=== PATIENT | female | born 1985 | race Caucasian/White ===

== ENCOUNTER 2023-11-06 17:16 | Emergency (ER) | payer MEDICAID, SELFPAY ==
--- NOTE | ~2023-11-06 | XR_ITS ---
Examination: X-ray sacrum and coccyx and lumbar spine INDICATION: Back pain COMPARISON: None TECHNIQUE: 3 views of the sacrum and coccyx. 2 views of the lumbar spine FINDINGS: Vertebral body heights and intervertebral disc spaces are fairly well preserved in the lumbar spine. Posterior elements appear intact. There is normal alignment in the lumbar spine. The sacrum and coccyx appear intact without displaced fracture. Sacroiliac joints and pubic symphysis are intact XR/XR lumbar spine 2-3V IMPRESSION: No acute process in the lumbar spine, sacrum and coccyx.
--- NOTE | ~2023-11-06 | XR_ITS ---
Examination: X-ray sacrum and coccyx and lumbar spine INDICATION: Back pain COMPARISON: None TECHNIQUE: 3 views of the sacrum and coccyx. 2 views of the lumbar spine FINDINGS: Vertebral body heights and intervertebral disc spaces are fairly well preserved in the lumbar spine. Posterior elements appear intact. There is normal alignment in the lumbar spine. The sacrum and coccyx appear intact without displaced fracture. Sacroiliac joints and pubic symphysis are intact XR/XR sacrum coccyx min 2V IMPRESSION: No acute process in the lumbar spine, sacrum and coccyx.
[2023-11-06 17:30] VITALS: BP 140/90; PULSE 89; RESP 20; TEMP 36.9; O2SAT 100
[2023-11-06 17:50] VITALS: BP 140/90; PULSE 89; RESP 20; TEMP 36.9; O2SAT 100; BMI 29.4
[2023-11-06 17:55] VITALS: BP 100/76; PULSE 104; O2SAT 99
--- NOTE | 2023-11-06 18:12 | ED_ITS ---
HPI - Back Pain/Injury General Chief Complaint: Back Pain/Injury Stated Complaint: Back pain Time Seen by Provider: 11/06/23 17:21 Source: patient, family and EMS Mode of arrival: EMS Limitations: no limitations History of Present Illness HPI Narrative: 38yo female with history of chronic back pain after an injury years ago, anxiety presents to the ER with lower back pain after pushing a heavy grocery cart this afternoon. Called EMS from home. Given 75mcg of fentanyl [employer]. Patient reports pain radiates to both lower legs with numbness/tingling. No numbness in the groin. No bowel or bladder incontinence. No fevers, chills. Related Data Previous Rx's Medication Instructions Recorded cyclobenzaprine 10 mg tablet 10 mg PO TID PRN muscle spasm #14 11/06/23 tabs ibuprofen 600 mg tablet 600 mg PO Q6H PRN pain #30 tabs 11/06/23 lidocaine 5 % topical patch 1 patch topical DAILY #30 ea 11/06/23 (Lidoderm) Allergies Allergy/AdvReac Type Severity Reaction Status Date / Time acetaminophen [From Tylenol] Allergy Muscle Verified 11/06/23 17:45 cramps diclofenac Allergy Hives Verified 11/06/23 17:45 ketorolac Allergy Hives Verified 11/06/23 17:45 Review of Systems Review of Systems: Yes all other systems are reviewed and are negative Constitutional: Constitutional: Reports no additional constitutional complaints, Denies body ache(s), Denies chills, Denies fever(s), Denies headache(s) and Denies weakness Eyes: Eyes: Reports no additional eye complaints and Denies change in vision ENT: Reports system reviewed and no additional complaints, except as documented, Denies dizziness, Denies headache(s), Denies nasal congestion, Denies nasal discharge and Denies neck pain Cardiovascular: Cardiovascular: Reports no additional cardiovascular complaints, Denies chest pain, Denies leg edema and Denies dyspnea Respiratory: Respiratory: Reports no additional respiratory complaints, Denies cough and Denies dyspnea Gastrointestinal: Gastrointestinal: Reports no additional gastrointestinal complaints, Denies abdominal pain, Denies diarrhea, Denies nausea and Denies vomiting Genitourinary: Genitourinary: Reports no additional female genitourinary complaints and Denies urinary incontinence Musculoskeletal: Musculoskeletal: Reports no additional musculoskeletal complaints, Reports back pain, Denies arthralgias, Denies joint swelling, Denies neck pain, Reports numbness, Reports radiating pain into limb and Reports tingling Integumentary/Breasts: Skin/Breast: Reports system reviewed and no additional complaints, except as docu and Denies rash Neurologic: Reports system reviewed and no additional complaints, except as documented, Denies Abnormal speech present, Denies dizziness, Denies headache(s), Reports numbness, Reports tingling and Denies weakness PMFSH Past Medical History Attestation statement: The following information was validated with the patient. Source: old records reviewed and nursing notes reviewed Onset Date is defined in the Problem List Problems that require an onset date and time if occurred within 24 hrs of arrival to the ED Aortic Dissection and Rupture; Neurologic impairment; Cardiopulmonary Arrest; Endotracheal Intubation; Insertion or Replacement of Mechanical Circulatory Assist Device Social History Social History Advance Directives: No Advance Directives Information Provided: No Physical Exam Vital Signs: Vital Signs: Last Vital Signs Temp 98.4 F 11/06/23 17:50 Pulse 89 11/06/23 17:50 Resp 20 11/06/23 17:50 BP 140/90 H 11/06/23 17:50 Pulse Ox 100 11/06/23 17:50 O2 Del Method Room Air 11/06/23 17:50 BMI result Body Mass Index 29.4 Const: Other: Crying in pain General: alert Orientation/consciousness: patient oriented x3 Limitations: no limitations HEENT: Head: Yes normal to inspection Ears: hearing grossly normal bilaterally General nose exam: Normal external nose present Face and sinus: Yes normal facial exam Mouth: Normal oral and palatal mucosa present Throat: Yes posterior oropharynx normal Eyes: General: appearance normal, both eyes and all related structures Pupils: Equal, round and reactive pupils present Neck: Neck: Yes normal visual inspection, Yes full ROM and Yes no lymphadenopathy Chest: Chest palpation & inspection: normal inspection of the chest Resp: Effort & Inspection: normal respiratory effort Auscultation: clear to auscultation bilaterally Cardio: Rate: regular rate Rhythm: regular rhythm Peripheral pulses: Peripheral pulses 2+ throughout GI: Inspection: Yes normal to inspection Palpation (GI): Soft to palpation and nontender Auscultation: normal bowel sounds : General: Yes no CVA tenderness Back/Spine/Pelvis: Other: TTP to midline lumbar spine with no step offs or deformities Worsened with bilateral straight leg raise Back: no CVA tenderness Thoracic/Lumbar Spine: thoracic and lumbar spine normal to inspection Skin: General skin exam: no rashes or lesions noted Neuro: General: patient oriented x3, moves all extremities, no focal motor deficits and normal sensation to monofilament Cranial nerves: Yes Equal, round and reactive pupils present Cognition (Neuro): normal cognition Speech: No Abnormal speech present Sensory Exam: Normal double simultaneous stimulation for sensation Deep tendon reflexes (DTR's): Right patellar reflex intensity grade: 2+ and Left patellar reflex intensity grade: 2+ Extrem: General: Yes normal to inspection Course Course Course Narrative: 1899-Sign out to Purvi QUINONES pending re-eval and dispo Reevaluation(s) Reevaluation #1: Pt re-evaluated, having some relief of pain, mild TTP to midline lumbar spine, will obtain xrays for further evaluation. Pt remains comfortable, eating in stretcher. Time: 19:15 Reevaluation #2: Patient ambulating in department, feeling much better, discharged on muscle relaxants, Lidoderm, and ibuprofen, also given Neuro Spine referral for further workup and evaluation given chronic back pain. Given return precautions. Patient stable for discharge. Time: 21:47 Medications Administered Discontinued Medications Generic Name Dose Route Start Last Admin Trade Name Osmin PRN Reason Stop Dose Admin Dexamethasone Sodium Phosphate 10 mg 11/06/23 18:07 11/06/23 18:30 Dexamethasone Sod Phosphate 10 Mg/Ml Vial IVPUSH 11/06/23 18:08 10 mg ONCE ONE Administration Diazepam 2.5 mg 11/06/23 18:05 11/06/23 18:29 Diazepam 10 Mg/2 Ml Cartridge IVPUSH 11/06/23 18:06 2.5 mg STAT STA Administration Lidocaine 1 patch 11/06/23 18:06 11/06/23 18:21 Lidocaine 4 % Patch Adh..Patch TRANSDERMA 11/06/23 18:07 1 patch ONCE ONE Administration Protocol Ondansetron HCl 4 mg 11/06/23 18:49 11/06/23 18:57 Ondansetron Hcl 4 Mg/2 Ml Vial IVPUSH 11/06/23 18:50 4 mg ONCE ONE Administration Oxycodone HCl 10 mg 11/06/23 18:05 11/06/23 18:19 Oxycodone Hcl Immed Release 5 Mg Tablet PO 11/06/23 18:06 10 mg ONCE ONE Administration Medical Decision Making Medical Decision Making MDM Narrative: 38yo female with history of chronic back pain after an injury years ago, anxiety presents to the ER with lower back pain after pushing a heavy grocery cart this afternoon. Called EMS from home. Given 75mcg of fentanyl [employer]. Patient reports pain radiates to both lower legs with numbness/tingling. No numbness in the groin. No bowel or bladder incontinence. No fevers, chills. quite uncomfortable, crying in pain. TTP to lumbar mid spine with no step offs or deformities No focal neuro deficits or red flag symptoms seems more muscular Multiple analgesia allergies Will give oxycodone, valium, lidoderm, decadron and re-assess Differential Diagnosis Differential Diagnoses: The differential diagnosis associated with the presentation includes no neurological deficits red flag symptoms suggest cord compression,, cauda equina, epidural abscess, malignancy no urinary symptoms suggest renal colic or pyelonephritis Gradual onset so low concern for AA No reports of fall or injury to suggest fracture Admission/Observation Consideration of admission/observation: Escalation of care including admission/observation considered no neuro deficits or red flag symptoms to suggest need for emergent MRI, urgent NSY consultation and or transfer to tertiary care center Radiology Impression Discussion of test interpretation with radiology: I have reviewed the radiologist's reading. Radiologist Impression: Examination: X-ray sacrum and coccyx and lumbar spine INDICATION: Back pain COMPARISON: None TECHNIQUE: 3 views of the sacrum and coccyx. 2 views of the lumbar spine FINDINGS: Vertebral body heights and intervertebral disc spaces are fairly well preserved in the lumbar spine. Posterior elements appear intact. There is normal alignment in the lumbar spine. The sacrum and coccyx appear intact without displaced fracture. Sacroiliac joints and pubic symphysis are intact XR/XR sacrum coccyx min 2V IMPRESSION: No acute process in the lumbar spine, sacrum and coccyx. Dictated By: Andi Nelson MD xamination: X-ray sacrum and coccyx and lumbar spine INDICATION: Back pain COMPARISON: None TECHNIQUE: 3 views of the sacrum and coccyx. 2 views of the lumbar spine FINDINGS: Vertebral body heights and intervertebral disc spaces are fairly well preserved in the lumbar spine. Posterior elements appear intact. There is normal alignment in the lumbar spine. The sacrum and coccyx appear intact without displaced fracture. Sacroiliac joints and pubic symphysis are intact XR/XR lumbar spine 2-3V IMPRESSION: No acute process in the lumbar spine, sacrum and coccyx. Dictated By: Andi Nelson MD Independent Historian Clinical information obtained from an independent historian. History obtained from or confirmed by: Parent and EMS Tests considered The following testing was considered but not selected: no neuro deficits or red flag symptoms to suggest need for emergent MRI Prescription Management I considered prescription management with: Pain Medication Discharge Plan Discharge Clinical Impression: Muscle spasm Patient Disposition: Home, Self-Care Instructions: Muscle Spasm (ED) Additional Instructions: Heat or ice to the area Gentle stretching No heavy lifting or bending Follow-up with your PCP for any continued symptoms Your x-rays were normal. Take muscle relaxants as prescribed, please be advised that this can cause drowsiness, do not drink alcohol or drive while taking this. Use Lidoderm patches as prescribed. Take ibuprofen as directed. You may follow-up with edi specialist, call Wednesday to make an appointment. Any new or worsening symptoms occur including but not limited to worsening pain, numbness and tingling anterior groin, loss of bowel or bladder control, please return for re-evaluation. Prescriptions: New cyclobenzaprine 10 mg tablet 10 mg PO TID PRN (Reason: muscle spasm) Qty: 14 0RF ibuprofen 600 mg tablet 600 mg PO Q6H PRN (Reason: pain) Qty: 30 0RF lidocaine [Lidoderm] 5 % adhesive patch,medicated 1 patch topical DAILY Qty: 30 0RF Rx Instructions: leave on most painful area for up to 12 hrs Referrals: Nagi Quiles MD, PhD [Physician] - Physician,None [Primary Care Provider] - 1 week Stand Alone Forms: Work/School Release
[2023-11-06] MEDS: oxyCODONE HCl Immed Release 5 MG TABLET 10 MG PO (18:19)
[2023-11-06] MEDS: Lidocaine 4 % Patch ADH..PATCH 1 PATCH TRANSDERMA (18:21)
[2023-11-06] MEDS: diazePAM 10 MG/2 ML CARTRIDGE 2.5 MG IVPUSH (18:29)
[2023-11-06] MEDS: dexAMETHasone sod phosphate 10 MG/ML VIAL IVPUSH (18:30)
[2023-11-06] MEDS: ondansetron HCL 4 MG/2 ML VIAL IVPUSH (18:57)
== END 2023-11-06 21:59 | disposition home or self-care (01) ==
PROVIDERS: Emergency Provider Internal Medicine
DX: M62.830 Muscle spasm of back (principal)
CPT/HCPCS: 72100; 72220; 96370; 96374; 96375; 99283; 99284; J1100; J2405; J3360